=== PATIENT | female | born 1975 | race Caucasian/White ===

== ENCOUNTER 2017-08-13 15:36 | Emergency (ER) | payer OTHER ==
[2017-08-13 15:45] VITALS: BP 155/116
[2017-08-13 16:09] LABS: BILIRUBIN,URINE NEGATIVE (NEGATIVE); GLUCOSE, URINE (UA) NEGATIVE (NEGATIVE); KETONES,URINE (UA) NEGATIVE (NEGATIVE); LEUKOCYTE ESTERASE, URINE SMALL (NEGATIVE); NITRITE,URINE NEGATIVE (NEGATIVE); OCCULT BLOOD,URINE SMALL (NEGATIVE); PROTEIN,URINE NEGATIVE (NEGATIVE); UROBILINOGEN,URINE 0.2 (NORMAL) E.U./dL (NORMAL)
[2017-08-13 16:37] LABS: CLARITY,URINE CLEAR (CLEAR)
--- NOTE | 2017-08-13 16:37 | ED Physician Documentation ---
History of Present Illness - Stated complaint Stated Complaint: FEM - Chief complaint Chief Complaint: UTI - History obtained from History obtained from: Patient (pt is here for evaluation of UTI like symptoms and "boil" under her breast.) Review of Systems Constitutional: denies: Fever, Chills Cardiac: denies: Chest pain / pressure, Palpitations Respiratory: denies: Dyspnea, Cough GI: denies: Nausea, Vomiting, Constipation, Diarrhea Skin: reports: Other (boil under right and left breast) PD PAST MEDICAL HISTORY - Past Medical History Past Medical History: Yes Cardiovascular: Hypertension Psych: Depression, Anxiety - Past Surgical History Past Surgical History: Yes General: Cholecystectomy - Present Medications Home Medications: Ambulatory Orders Medication Instructions Recorded Confirmed Propranolol [Inderal] 5 mg PO BID 09/07/15 08/13/17 Cephalexin [Keflex] 500 mg PO Q6HR #28 capsule 08/13/17 - Allergies Allergies/Adverse Reactions: Allergies Allergy/AdvReac Type Severity Reaction Status Date / Time acetaminophen [From Vicodin] Allergy Unknown Verified 08/13/17 15:46 codeine Allergy Unknown Verified 08/13/17 15:46 hydrocodone bitartrate * Allergy Unknown Verified 08/13/17 15:46 [From Vicodin] iodine Allergy Hives Verified 08/13/17 15:46 latex Allergy Rash Verified 08/13/17 15:46 morphine Allergy Unknown Verified 08/13/17 15:46 oxycodone HCl * Allergy Unknown Verified 08/13/17 15:46 [From Percocet] - Social History Does the pt smoke?: Yes Smoking Status: Current every day smoker Does the pt drink ETOH?: No Does the pt have substance abuse?: No - Immunizations Immunizations are current?: Yes - POLST Patient has POLST: No PD ED PE NORMAL - Vitals Vital signs reviewed: Yes - General General: Alert and oriented X 3, Well developed/nourished - Cardiac Cardiac: RRR, No murmur - Respiratory Respiratory: No respiratory distress - Abdomen Abdomen: Soft - Derm Derm: Other (pt with multiple areas of redness and on area of ulceration under the left breast. ) - Neuro Neuro: Alert and oriented X 3 Eye Opening: Spontaneous Motor: Obeys Commands Verbal: Oriented GCS Score: 15 - Psych Psych: Normal mood, Normal affect Results - Vitals Vitals: Vital Signs - 24 hr 08/13/17 15:41 Temperature 36.5 C Heart Rate 108 H Respiratory 20 Rate Blood Pressure 155/116 H O2 Saturation 100 Oxygen O2 Source Room air - Labs Labs: Laboratory Tests 08/13/17 15:55 Urine Color YELLOW Urine Clarity CLEAR Urine pH 7.0 Ur Specific Banks <=1.005 Urine Protein NEGATIVE Urine Glucose (UA) NEGATIVE Urine Ketones NEGATIVE Urine Occult Blood SMALL H Urine Nitrite NEGATIVE Urine Bilirubin NEGATIVE Urine Urobilinogen 0.2 (NORMAL) Ur Leukocyte Esterase SMALL H Urine RBC 11-25 H Urine WBC 11-25 H Urine WBC Clumps PRESENT Ur Squamous Epith Cells FEW Squamous Urine Bacteria Moderate H Ur Microscopic Review INDICATED Urine Culture Comments INDICATED PD MEDICAL DECISION MAKING - ED course Complexity details: considered differential, d/w patient ED course: pt with hx of 'boils" and UTI like symptoms. she has never had on I&D but they do look like small abscess on exam. discussed wtih pt. will treat with ABX that would cover skin and UTI. pt instructed to contact her PCM for a follow up. Departure - Departure Clinical Impression: Skin abscess, UTI (urinary tract infection) Condition: Good Instructions: ED UTI Cystitis Female Follow-Up: primary, care provider [Other] Prescriptions: Cephalexin [Keflex] 500 mg PO Q6HR #28 capsule Comments: take your medications as instructed. Return to the ER for any new or worsening symptoms
[2017-08-13 16:38] LABS: SQUAMOUS EPITHELIAL CELL,UR FEW Squamous (<= Few); WBC CLUMPS,URINE PRESENT
[2017-08-13 16:39] LABS: BACTERIA,URINE Moderate /HPF (None Seen)
== END 2017-08-13 16:50 | disposition home or self-care (01) ==
LOC: ED 15:36
DX: N39.0 Urinary tract infection, site not specified (principal); L02.219 Cutaneous abscess of trunk, unspecified; I10 Essential (primary) hypertension; F17.200 Nicotine dependence, unspecified, uncomplicated
CPT/HCPCS: 81001; 81003; 87086; 99283

== ENCOUNTER 2020-01-02 21:43 | Outpatient (CLI) | payer OTHER | END 2020-01-02 21:44 | disposition EMS.NT | LOC: EMS 21:43 | PROVIDERS: ATTEND Surgery | DX: R10.31 Right lower quadrant pain (principal) ==

== ENCOUNTER 2020-12-12 21:25 | Emergency (ER) | payer OTHER ==
[2020-12-12] MEDS ORDERED: AMOX/CLAV 875 MG/125 MG TABLET PO STA (22:13)
--- NOTE | 2020-12-12 22:15 | ED Physician Documentation ---
History of Present Illness - Stated complaint Stated Complaint: R JAW PX - Chief complaint Chief Complaint: Heent - Additonal information Additional information: 45-year-old female presents the emergency department for evaluation of acute ri ght lower jaw swelling that began this morning. She has a badly decayed right posterior molar and has not seen a dentist in quite some time. She did report that before the swelling began she had tingling in the jaw area. She denies any chest pain or shortness of air. She is a smoker. No history of diabetes. Review of Systems Constitutional: reports: Reviewed and negative Eyes: reports: Reviewed and negative Ears: reports: Reviewed and negative Nose: reports: Reviewed and negative Throat: reports: Dental pain / toothache. denies: Sore throat, Swollen tonsils, Swallowed foreign body Cardiac: reports: Reviewed and negative Respiratory: reports: Reviewed and negative GI: reports: Reviewed and negative : reports: Reviewed and negative Skin: reports: Reviewed and negative Musculoskeletal: reports: Reviewed and negative PD PAST MEDICAL HISTORY - Past Medical History Past Medical History: Yes Cardiovascular: Hypertension Psych: Depression, Anxiety - Past Surgical History Past Surgical History: Yes General: Cholecystectomy - Present Medications Home Medications: Ambulatory Orders Medication Instructions Recorded Confirmed Amox/Clav 875/125 [Augmentin] 1 each PO Q12H #20 tablet 12/12/20 - Allergies Allergies/Adverse Reactions: Allergies Allergy/AdvReac Type Severity Reaction Status Date / Time acetaminophen [From Vicodin] Allergy Unknown Verified 12/12/20 21:37 codeine Allergy Unknown Verified 12/12/20 21:37 hydrocodone bitartrate * Allergy Unknown Verified 12/12/20 21:37 [From Vicodin] iodine Allergy Hives Verified 12/12/20 21:37 latex Allergy Rash Verified 12/12/20 21:37 morphine Allergy Unknown Verified 12/12/20 21:37 oxycodone HCl * Allergy Unknown Verified 12/12/20 21:37 [From Percocet] - Social History Does the pt smoke?: Yes Smoking Status: Current every day smoker Does the pt drink ETOH?: No Does the pt have substance abuse?: No - Immunizations Immunizations are current?: Yes - POLST Patient has POLST: No PD ED PE EXPANDED - General General: Alert, No acute distress - HEENT HEENT: Dental decay, Dental TTP, Dental abscess (right posterior molar decayed to the gumline. Mild swelling and erythema surrounding this molar. There is no trismus. Normal phonation normal swallow. Some swelling that extends to the angle of the mandible externally without erythema.Right lower posterior molar badly decayed to) Results - Vitals Vitals: Vital Signs - 24 hr 12/12/20 21:34 Temperature 36.2 C L Heart Rate 107 H Respiratory 16 Rate Blood Pressure 169/118 H O2 Saturation 98 Oxygen O2 Source Room air PD MEDICAL DECISION MAKING - ED course Complexity details: reviewed results, re-evaluated patient, d/w patient ED course: 45-year-old female presents emergency department for evaluation of right lower jaw swelling in the setting of a badly decayed molar. Is been quite sometime since she has seen a dentist. On exam there is no trismus dysphonia or inability to tolerate oral secretions. I do suspect dental abscess/infection. Patient was started on Augmentin first dose given in the emergency department. I do recommend warm salt water rinses. Patient will attempt to follow-up with a dentist in the next 1 to 2 weeks to have this molar removed. Return precautions were discussed for fevers, trismus dysphonia and inability to tolerate oral secretions. Departure - Departure Disposition: 01 Home, Self Care Clinical Impression: Dental infection, Swelling of mandible Condition: Stable Record reviewed to determine appropriate education?: Yes Instructions: ED Tooth Pain Prescriptions: Amox/Clav 875/125 [Augmentin] 1 each PO Q12H #20 tablet Comments: Vivi you have acute swelling of the right jaw. This is most consistent with a dental infection as your right lower posterior molar is badly decayed. I would like you to rinse your mouth with warm salt water 3 times a day. This will help draw out infection. Please fill the prescription for the antibiotics and begin taking as directed. This will be a recurrent problem until the tooth is removed. Please schedule an appointment with the dentist in about 1 to 2 weeks time for evaluation of this tooth. Infection must be improving before it can be removed. Return to the emergency department if you are unable to open your jaw, you have high fevers, cannot tolerate your oral secretions.
--- OUTSIDE RECORDS SUMMARY | 2020-12-12 22:15 | EXTERNAL MEDICAL SUMMARY RPT | Continuity of Care Document ---
:1975 Demographics Phone Unavailable Preferred Language Unknown Marital Status Unknown Hindu Affiliation Unknown Race Unknown Ethnic Group Unknown Author Organization [facility] Address [address] [place] [address] Phone Allergies Encounters Medications Problems Results
[2020-12-12 22:28] VITALS: BP 160/121
== END 2020-12-12 22:34 | disposition home or self-care (01) ==
LOC: ED 21:25
DX: K04.7 Periapical abscess without sinus (principal); R22.0 Localized swelling, mass and lump, head; K02.9 Dental caries, unspecified; I10 Essential (primary) hypertension; F17.200 Nicotine dependence, unspecified, uncomplicated
CPT/HCPCS: 99282; 99283; A9270

== ENCOUNTER 2022-09-01 09:58 | Outpatient (CLI) | payer OTHER | END 2022-09-01 09:59 | disposition EMS.NT | LOC: EMS 09:58 | DX: R45.89 Other symptoms and signs involving emotional state (principal) ==

== ENCOUNTER 2023-12-02 17:28 | Outpatient (CLI) | payer OTHER ==
--- NOTE | 2023-12-03 13:15 | Ultrasound Report ---
PROCEDURE: Soft Tissue Head or Neck INDICATIONS: THYROTOXICOSIS TECHNIQUE: Real-time scanning was performed of the thyroid gland, with image documentation. COMPARISON: None FINDINGS: Right: Thyroid lobe measures 5.6 x 1.8 x 1.6 cm. Left: Thyroid lobe measures 4.6 x 1.8 x 1.8 cm Isthmus: 0.8 cm thick. Echotexture: Homogeneous. Heterogeneous hyperemic thyroid parenchyma bilaterally, without discrete intraparenchymal nodule. There is a parathyroid nodule measuring 1.5 x 1 cm on the right posterior region. IMPRESSION: Possible right parathyroid nodule measuring 1.5 x 1 cm. Heterogeneous hyperemic thyroid parenchyma, likely sequelae of thyroiditis. No discrete intrathyroid nodule. ACR TI-RADS definitions and recommendations: TI-RADS 1 (benign): 0 points. FNA not needed. TI-RADS 2 (not suspicious): 2 points. FNA not needed. TI-RADS 3 (mildly suspicious): 3 points. "FNA if 2.5 cm or larger, follow up if 1.5 cm or larger (at 1, 3, and 5 years). TI-RADS 4 (moderately suspicious): 4-6 points. "FNA if 1.5 cm or larger, follow up if 1 cm or larger (at 1, 2, 3, and 5 years). TI-RADS 5 (highly suspicious): 7 points or more. "FNA if 1 cm or larger, follow up if 0.5 cm or larger (every year for 5 years). Reviewed by: Carlos Pan MD on 12/03/2023 1:14 PM PDT Approved by: Carlos Pan MD on 12/03/2023 1:14 PM PDT Station ID: [id number]
== END 2023-12-02 17:29 | disposition home or self-care (01) ==
LOC: DI 17:28
PROVIDERS: ATTEND Nurse Practitioner Family
DX: E05.90 Thyrotoxicosis, unspecified without thyrotoxic crisis or storm (principal)